=== PATIENT | male | born 1975 | race Caucasian/White ===

== ENCOUNTER 2024-08-04 00:22 | Emergency (ER) | payer OTHER ==
[2024-08-03] MEDS: Metoclopramide 10 MG/2 ML SDV IVPUSH ONE (23:15)
[2024-08-03] MEDS: Glucagon,Human Recombinant 1 MG Vial IV SCH (23:20)
== END 2024-08-04 00:24 ==
LOC: LB.ED 00:22
DX: T18.128A Food in esophagus causing other injury, initial encounter (principal)
CPT/HCPCS: 71250; 96374; 96375; 99285-25; J1610; J2765